=== PATIENT | female | born 2000 | race African-American/Black ===

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

== ENCOUNTER 2020-04-01 14:26 | Emergency (ER) | payer SELFPAY ==
[~2020-04-01] VITALS: Ht 154.9 cm; Wt 72.7 kg
[~2020-04-01 14:26] MED LIST changes: +POLY119P4 PO
[2020-04-01 15:58] LABS: BILIRUBIN,URINE NEGATIVE (NEG); CLARITY,URINE CLEAR; COLOR,URINE YELLOW; NITRITE,URINE NEGATIVE (NEG); PROTEIN,URINE NEGATIVE (NEG-TRACE)
[2020-04-01 16:03] LABS: RBC,URINE 0 /HPF (0-2)
[2020-04-01 16:04] LABS: BACTERIA,URINE FEW /HPF (0-FEW); SQUAMOUS EPITHELIAL CELL,UR MOD /LPF; WBC,URINE RARE /HPF (0-4)
[2020-04-01 16:06] VITALS: BP 125/62
[2020-04-01] MEDS ORDERED: METR-34 PO (16:14)
--- NOTE | 2020-04-01 16:14 | PHYS DOC ---
Past Medical History Past Medical History: Anxiety, Asthma, Other Additional Past Medical Histor: Headaches, Chronic Back Pain, PCOS Past Surgical History: No Surgical History Smoking Status: Never Smoker Alcohol Use: None Drug Use: None General Adult EDM: Chief Complaint: VAGINAL PROBLEM HPI: HPI: Patient is a 19 year old AA female who presents to the emergency department with complaints of vaginal itching and irregular vaginal discharge for the last 2 days. She denies any recent antibiotic use. She reports that she has noticed a foul smell to her vaginal discharge. She denies any dysuria, increased urinary frequency, back pain, abdominal pain, nausea, vomiting, diarrhea, or fever. She currently denies any pain. Has any concern for sexually transmitted infection. The patient would not like to be treated prophylactically for gonorrhea or chlamydia. Review of Systems: Review of Systems: Complete ROS is negative unless otherwise stated in the HPI. Heart Score: Risk Factors: Risk Factors: DM, Current or recent (<one month) smoker, HTN, HLP, family history of CAD, obesity. Risk Scores: Score 0 - 3: 2.5% MACE over next 6 weeks - Discharge Home Score 4 - 6: 20.3% MACE over next 6 weeks - Admit for Clinical Observation Score 7 - 10: 72.7% MACE over next 6 weeks - Early Invasive Strategies Allergies: Allergies: Allergies Coded Allergies Type Severity Reaction Last Updated Verified venom-honey bee Allergy Intermediate swelling 04/03/14 Yes Physical Exam: PE: Constitutional: Well developed, well nourished, no acute distress, non-toxic appearance. HENT: Normocephalic, atraumatic, bilateral external ears normal, nose normal. Eyes: PERRLA, EOMI, conjunctiva normal, no discharge. Neck: Normal range of motion, no stridor. Cardiovascular: Heart rate regular rhythm Lungs & Thorax: Respirations even and unlabored, no retractions, no respiratory distress Pelvic Exam: Car Driver present Lizz MONTES [place] Abdomen: Nontender, soft External Genitalia: Normal Skin Speculum: Normal vaginal mucosa, normal cervical discharge Bimanual: No adnexal masses or tenderness, No CMT Skin: Warm, dry, no erythema, no rash. Extremities: No cyanosis, ROM intact, no edema. Neurologic: Alert and oriented X 3, no focal deficits noted. Psychologic: Affect normal, judgement normal, mood normal. Current Patient Data: Labs: Laboratory Tests Test 04/01/20 15:17 04/01/20 15:38 POC Urine HCG, Qualitative Hcg negative (Negative) Urine Collection Type Unknown Urine Color Yellow Urine Clarity Clear Urine pH 7.0 (<5.0-8.0) Urine Specific [place] <=1.005 (1.000-1.030) Urine Protein Negative mg/dL (NEG-TRACE) Urine Glucose (UA) Negative mg/dL (NEG) Urine Ketones (Stick) Negative mg/dL (NEG) Urine Blood Negative (NEG) Urine Nitrite Negative (NEG) Urine Bilirubin Negative (NEG) Urine Urobilinogen Dipstick 1.0 mg/dL (0.2 mg/dL) Urine Leukocyte Esterase Negative (NEG) Urine RBC 0 /HPF (0-2) Urine WBC Rare /HPF (0-4) Urine Squamous Epithelial Cells Mod /LPF Urine Bacteria Few /HPF (0-FEW) Microbiology 04/01/20 Wet Prep - Final, Complete Vital Signs: Vital Signs Date Time Temp Pulse Resp B/P (MAP) Pulse Ox O2 Delivery O2 Flow Rate FiO2 04/01/20 15:08 98.7 92 20 131/74 (93) Room Air 98.7 EKG: EKG: [] Radiology/Procedures: Radiology/Procedures: [] Course & Med Decision Making: Course & Med Decision Making Pertinent Labs and Imaging studies reviewed. (See chart for details) [] Dragon Disclaimer: Dragon Disclaimer: This electronic medical record was generated, in whole or in part, using a voice recognition dictation system. Departure Departure Impression: Primary Impression: Bacterial vaginosis Disposition: HOME, SELF-CARE Condition: STABLE Referrals: NO PCP (PCP) ESTEFANI LOZA MD Patient Instructions: Bacterial Vaginosis, Dmlo-[id number] Additional Instructions: Fill the prescription and use it as directed. Follow-up with your primary care doctor or [facility] if symptoms persist, return to the ER symptoms worsen. Scripts Metronidazole (METRONIDAZOLE) 500 Mg Tablet 1 TAB PO BID for 7 Days, #14 TAB 0 Refills Prov: ALVIN BALL APRN 04/01/20 Justicifation of Admission Dx: Justifications for Admission: Justification of Admission Dx: N/A ALVIN BALL APRN Apr 01, 2020 16:14
[2020-04-02 21:08] LABS: GC PROBE Negative (Negative)
== END 2020-04-01 16:45 | disposition home or self-care (01) ==
LOC: ER 14:26
DX: N76.0 Acute vaginitis (principal); B96.89 Other specified bacterial agents as the cause of diseases classified elsewhere; J45.909 Unspecified asthma, uncomplicated; G89.29 Other chronic pain; Z91.030 Bee allergy status
CPT/HCPCS: 81001; 81025; 87491; 87591; 99284; Q0111

== ENCOUNTER 2020-07-01 17:40 | Emergency (ER) | payer OTHER ==
[~2020-07-01] VITALS: Ht 156.2 cm; Wt 81.1 kg
[~2020-07-01 17:40] MED LIST changes: +METR-34 PO
[2020-07-01 18:10] VITALS: BP 125/75
[2020-07-01] MEDS ORDERED: PROCHLORPERAZINE 10 MG/2 ML VIAL. IM ONE (18:15)
[2020-07-01] MEDS ORDERED: KETOROLAC 60 MG/2 ML VIAL. IM ONE (18:15)
[2020-07-01] MEDS ORDERED: DEXAMETHASONE 4 MG TABLET PO ONE (18:15)
[2020-07-01] MEDS ORDERED: diphenhydrAMINE 50 MG/ML VIAL IM ONE (18:15)
--- NOTE | 2020-07-01 18:26 | PHYS DOC ---
Past Medical History Past Medical History: Anxiety, Asthma, Other Additional Past Medical Histor: Headaches, Chronic Back Pain, PCOS (NELLY LERMA BELT [employer] LINK SHOP SUPERVISOR) Past Surgical History: No Surgical History (NELLY LERMA BELT [employer] L[employer] SH[employer] SUPERVISOR) Smoking Status: Never Smoker Alcohol Use: None Drug Use: None (NELLY LERMA BELT [employer] L[employer] SH[employer] SUPERVISOR) General Adult EDM: Chief Complaint: HEADACHE HPI: HPI: Patient is a 19 year old female who presents with migraine headache for the last 2 days. She states it feels like her usual headaches. She states that goes from denominational to denominational across her forehead area. She states this is not the worst headache she is ever felt. States she has been taking Tylenol and ibuprofen at home is not helping. She has light sensitivity. Patient denies neck pain, neck stiffness, nausea, vomiting, diarrhea, fever, nasal congestion, cough, chest pain, shortness of air, focal weakness, numbness or tingling, fall or head injury. Patient states she was diagnosed with migraines as a child. Patient has a history of migraine, chronic back pain, PCOS, anxiety, asthma. Patient does state that she has been very stressed lately she thinks that that is what has triggered the headache. She is rating her pain a aching 7 out of 10. (NELLY LERMA BEL[employer] SH[employer] SUPERVISOR) Review of Systems: Review of Systems: Constitutional: Denies fever or chills. [] Eyes: Denies change in visual acuity. + Light sensitivity [] HENT: Denies nasal congestion or sore throat. [] Respiratory: Denies cough or shortness of breath. [] Cardiovascular: Denies chest pain or edema. [] GI: Denies abdominal pain, nausea, vomiting, bloody stools or diarrhea. [] : Denies dysuria. [] Musculoskeletal: Denies back pain or joint pain. [] Integument: Denies rash. [] Neurologic: + headache, denies focal weakness or sensory changes. [] Endocrine: Denies polyuria or polydipsia. [] Lymphatic: Denies swollen glands. [] Psychiatric: Denies depression or anxiety. [] (NELLY LERMA BEL[employer] SUPERVISOR) Heart Score: Risk Factors: Risk Factors: DM, Current or recent (<one month) smoker, HTN, HLP, family history of CAD, obesity. Risk Scores: Score 0 - 3: 2.5% MACE over next 6 weeks - Discharge Home Score 4 - 6: 20.3% MACE over next 6 weeks - Admit for Clinical Observation Score 7 - 10: 72.7% MACE over next 6 weeks - Early Invasive Strategies (NELLY LERMA APRN) Current Medications: Current Medications Medications (Trade) Dose Ordered Sig/Vicky Start Time Stop Time Status Last Admin Dose Admin Dexamethasone (Decadron) 10 mg 1X ONCE 07/01/20 18:15 07/01/20 18:16 UNV Diphenhydramine HCl (Benadryl) 25 mg 1X ONCE 07/01/20 18:15 07/01/20 18:16 Ketorolac Tromethamine (Toradol Im) 60 mg 1X ONCE 07/01/20 18:15 07/01/20 18:16 UNV Prochlorperazine Edisylate (Compazine) 10 mg 1X ONCE 07/01/20 18:15 07/01/20 18:16 (NELLY LERMA [employer] SUPERVISOR) Allergies: Allergies: Allergies Coded Allergies Type Severity Reaction Last Updated Verified venom-honey bee Allergy Intermediate swelling 04/03/14 Yes (NELLY LERMA [employer] SUPERVISOR) Physical Exam: PE: Constitutional: Well developed, well nourished, no acute distress, non-toxic appearance. [] HENT: Normocephalic, atraumatic, bilateral external ears normal, oropharynx moist, no oral exudates, nose normal. [] Eyes: PERRLA, EOMI, conjunctiva normal, no discharge. Light sensitivity. [] Neck: Normal range of motion, no tenderness, supple, no stridor. [] Cardiovascular:Heart rate regular rhythm, no murmur [] Lungs & Thorax: Bilateral breath sounds clear to auscultation [] Abdomen: Bowel sounds normal, soft, no tenderness, no masses, no pulsatile masses. [] Skin: Warm, dry, no erythema, no rash. [] Back: No tenderness, no CVA tenderness. [] Extremities: No tenderness, no cyanosis, no clubbing, ROM intact, no edema. [] Neurologic: Alert and oriented X 3, normal motor function, normal sensory function, no focal deficits noted. [] Psychologic: Affect normal, judgement normal, mood normal. [] (NELLY LERMA APRN) Current Patient Data: Vital Signs: Vital Signs Date Time Temp Pulse Resp B/P (MAP) Pulse Ox O2 Delivery O2 Flow Rate FiO2 07/01/20 17:45 97.9 90 18 99 97.9 (NELLY LERMA APRN) EKG: EKG: [] (NELLY LERMA APRN) Radiology/Procedures: Radiology/Procedures: [] (NELLY LERMA APRN) Course & Med Decision Making: Course & Med Decision Making Pertinent Labs and Imaging studies reviewed. (See chart for details) See HPI. Full range of motion of the neck. There is no neck rigidity and no stiffness of the neck. No neck tenderness. Speaks in full complete sentences. Alert and oriented x4. Ambulatory with a steady gait. Follows all commands. Skin pink warm and dry. Afebrile. Patient is given Compazine, Benadryl, Toradol and Decadron in the ED. Patient states that she is feeling much better. Patient will be discharged home and follow-up with her primary care provider soon as possible. [] (NELLY LERMA APRN) Course & Med Decision Making I have reviewed the PA/HEALTH MANAGER's note and Plan of Care. I was available for consultation as needed during the patient's visit in the emergency department. I agree with the clinical impression, plans and disposition. (SANDY ALCARAZ MD) Dragon Disclaimer: Dragon Disclaimer: This electronic medical record was generated, in whole or in part, using a voice recognition dictation system. (NELLY LERMA APRN) Departure Departure Impression: Primary Impression: Headache Qualified Codes: R51.9 - Headache, unspecified Disposition: 01 DC HOME SELF CARE/HOMELESS Condition: STABLE Referrals: NO PCP (PCP) Patient Instructions: Migraine Headache, [id number] Additional Instructions: Follow-up with primary care provider soon as possible. Begin having weakness on one side of your body or numbness in one side your body return to the emergency room. Drink plenty of fluids. NELLY LERMA APRN Jul 01, 2020 18:26 SANDY ALCARAZ MD Jul 01, 2020 19:32
== END 2020-07-01 19:24 | disposition home or self-care (01) ==
LOC: ER 17:40
DX: G43.909 Migraine, unspecified, not intractable, without status migrainosus (principal); F41.9 Anxiety disorder, unspecified; J45.909 Unspecified asthma, uncomplicated; G89.29 Other chronic pain; Z91.030 Bee allergy status
CPT/HCPCS: 81025; 96372; 99284; J0780; J1200; J1885

== ENCOUNTER 2020-07-09 07:27 | Emergency (ER) | payer OTHER ==
[~2020-07-09] VITALS: Ht 156.2 cm; Wt 83.0 kg
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
[2020-07-09 09:04] VITALS: BP 114/61
[2020-07-09] MEDS: ACETAMINOPHEN 500 MG TABLET PO ONE (09:07)
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
[2020-07-09] MEDS ORDERED: TRAM-48 PO (09:39)
== END 2020-07-09 09:45 | disposition home or self-care (01) ==
LOC: EEVIPCON 07:27 → ER 07:27
DX: S00.83XA Contusion of other part of head, initial encounter (principal); M25.562 Pain in left knee; M79.642 Pain in left hand; R60.0 Localized edema; F41.9 Anxiety disorder, unspecified; J45.909 Unspecified asthma, uncomplicated; G89.29 Other chronic pain; Z91.030 Bee allergy status; Y08.89XA Assault by other specified means, initial encounter; Y93.89 Activity, other specified; Y92.89 Other specified places as the place of occurrence of the external cause; Y99.8 Other external cause status
CPT/HCPCS: 70450; 70486; 73130; 73562; 81025; 99285

== ENCOUNTER 2020-09-29 20:06 | Emergency (ER) | payer OTHER ==
[~2020-09-29] VITALS: Ht 154.9 cm; Wt 81.8 kg
--- NOTE | 2020-09-29 21:42 | PHYS DOC ---
Past Medical History Past Medical History: Anxiety, Asthma, Other Additional Past Medical Histor: Headaches, Chronic Back Pain, PCOS (NELLY LERMA COLLEGE OR UNIVERSITY BUSINESS MANAGER) Past Surgical History: No Surgical History (NELLY LERMA COLLEGE OR UNIVERSITY BUSINESS MANAGER) Smoking Status: Never Smoker Alcohol Use: None Drug Use: None (NELLY LERMA APRN) General Adult EDM: Chief Complaint: VAGINAL PROBLEM HPI: HPI: Patient is a 20 year old female who presents with 3 days of vaginal itching. She states that she gets frequent yeast infections and she watched a [employer] video that explained how to douche with [place] yogurt and water. She states she did this 2 days ago. She denies abdominal pain, abnormal vaginal discharge, abnormal smell, urinary symptoms, back pain, fever, dizziness. She states that she would like to be treated for STDs prophylactically. (NELLY LERMA COLLEGE OR UNIVERSITY BUSINESS MANAGER) Review of Systems: Review of Systems: Constitutional: Denies fever or chills. [] Eyes: Denies change in visual acuity. [] HENT: Denies nasal congestion or sore throat. [] Respiratory: Denies cough or shortness of breath. [] Cardiovascular: Denies chest pain or edema. [] GI: Denies abdominal pain, nausea, vomiting, bloody stools or diarrhea. [] : Denies dysuria. + Vaginal itching [] Musculoskeletal: Denies back pain or joint pain. [] Integument: Denies rash. [] Neurologic: Denies headache, focal weakness or sensory changes. [] Endocrine: Denies polyuria or polydipsia. [] Lymphatic: Denies swollen glands. [] Psychiatric: Denies depression or anxiety. [] (NELLY LERMA COLLEGE OR UNIVERSITY BUSINESS MANAGER) Heart Score: Risk Factors: Risk Factors: DM, Current or recent (<one month) smoker, HTN, HLP, family history of CAD, obesity. Risk Scores: Score 0 - 3: 2.5% MACE over next 6 weeks - Discharge Home Score 4 - 6: 20.3% MACE over next 6 weeks - Admit for Clinical Observation Score 7 - 10: 72.7% MACE over next 6 weeks - Early Invasive Strategies (NELLY LERMA COLLEGE OR UNIVERSITY BUSINESS MANAGER) Allergies: Allergies: Allergies Coded Allergies Type Severity Reaction Last Updated Verified venom-honey bee Allergy Intermediate swelling 04/03/14 Yes (NELLY LERMA APRN) Physical Exam: PE: Constitutional: Well developed, well nourished, no acute distress, non-toxic appearance. [] HENT: Normocephalic, atraumatic, bilateral external ears normal, oropharynx moist, no oral exudates, nose normal. [] Eyes: PERRLA, EOMI, conjunctiva normal, no discharge. [] Neck: Normal range of motion, no tenderness, supple, no stridor. [] Cardiovascular:Heart rate regular rhythm, no murmur [] Lungs & Thorax: Bilateral breath sounds clear to auscultation [] Abdomen: Bowel sounds normal, soft, no tenderness, no masses, no pulsatile masses. [] Skin: Warm, dry, no erythema, no rash. [] Back: No tenderness, no CVA tenderness. [] Extremities: No tenderness, no cyanosis, no clubbing, ROM intact, no edema. [] Neurologic: Alert and oriented X 3, normal motor function, normal sensory function, no focal deficits noted. [] Psychologic: Affect normal, judgement normal, mood normal. [] Normal physical exam (NELLY LERMA APRN) Current Patient Data: Labs: Laboratory Tests Test 09/29/20 20:21 POC Urine HCG, Qualitative Hcg negative (Negative) (NELLY LERMA APRN) EKG: EKG: [] (NELLY LERMA APRN) Radiology/Procedures: Radiology/Procedures: [] (NELLY LERMA APRN) Course & Med Decision Making: Course & Med Decision Making Pertinent Labs and Imaging studies reviewed. (See chart for details) See HPI. Alert and oriented x4. Ambulatory with a steady gait. Speaks in full clear sentences. Abdomen is soft and nontender. Patient is treated with azithromycin and Rocephin in the ED. Pelvic Exam: Machine Rug Cleaner present Abdomen: Nontender External Genitalia: Normal Skin Speculum: Normal vaginal mucosa, white cervical discharge Bimanual: No adnexal masses or tenderness, No CMT Wet prep showed bacterial vaginosis. She will be treated with metronidazole. [] (NELLY LERMA APRN) Dragon Disclaimer: Dragon Disclaimer: This electronic medical record was generated, in whole or in part, using a voice recognition dictation system. (NELLY LERMA APRN) Departure Departure Impression: Primary Impression: Bacterial vaginosis Disposition: 01 DC HOME SELF CARE/HOMELESS Condition: STABLE Referrals: NO PCP (PCP) Patient Instructions: Bacterial Vaginosis Additional Instructions: FOLLOW UP WITH PRIMARY CARE PROVIDER OR SWIMMING POOL MAINTENANCE SUPERVISOR. TAKE MEDICATIONS WITH FOOD AND DO NOT DRINK ALCOHOL WITH THIS MEDICATION IT WILL MAKE YOU VOMIT. Scripts Metronidazole (METRONIDAZOLE) 500 Mg Tablet 1 TAB PO BID for 7 Days, #14 TAB 0 Refills Prov: NELLY LERMA APRN 09/29/20 Attending Signature Attending Signature I have reviewed the PA/MELT SUPERINTENDANT's note and plan of care. I was available for consultation as needed during the patient's visit in the emergency department. I agree with the clinical impression, plan, and disposition. (ESTEFANI MORRISON DO) NELLY LERMA APRN Sep 29, 2020 21:41 ESTEFANI MORRISON DO Sep 30, 2020 00:10
[2020-09-29] MEDS ORDERED: AZITHROMYCIN 250 MG TABLET. PO ONE (22:00)
[2020-09-29] MEDS ORDERED: cefTRIAXone IM 500 MG VIAL. IM ONE (22:00)
[2020-09-29 22:15] VITALS: BP 111/82
[2020-09-29] MEDS ORDERED: METR-34 PO (22:23)
[2020-09-29 22:31] LABS: BILIRUBIN,URINE NEGATIVE (NEG); CLARITY,URINE CLEAR; COLOR,URINE YELLOW; NITRITE,URINE NEGATIVE (NEG); PROTEIN,URINE NEGATIVE (NEG-TRACE)
[2020-09-29 22:42] LABS: BACTERIA,URINE FEW /HPF (0-FEW)
[2020-10-01 20:36] LABS: GC PROBE Negative (Negative)
== END 2020-09-29 22:51 | disposition home or self-care (01) ==
LOC: ER 20:06
DX: N76.0 Acute vaginitis (principal); B96.89 Other specified bacterial agents as the cause of diseases classified elsewhere; F41.9 Anxiety disorder, unspecified; J45.909 Unspecified asthma, uncomplicated; G89.29 Other chronic pain; Z91.018 Allergy to other foods
CPT/HCPCS: 81001; 81025; 87491; 87591; 96372; 99284; J0696; Q0111

== ENCOUNTER 2021-03-06 19:38 | Emergency (ER) | payer OTHER ==
[~2021-03-06] VITALS: Ht 162.6 cm; Wt 81.8 kg
[2021-03-06 20:02] VITALS: BP 128/71
[2021-03-06 20:53] LABS: BILIRUBIN,URINE NEGATIVE (NEG); CLARITY,URINE CLEAR; COLOR,URINE YELLOW; NITRITE,URINE NEGATIVE (NEG); PROTEIN,URINE NEGATIVE (NEG-TRACE)
[2021-03-06 20:57] LABS: BACTERIA,URINE FEW /HPF (0-FEW); RBC,URINE 0 /HPF (0-2); WBC,URINE OCC /HPF (0-4)
[2021-03-06] MEDS ORDERED: METR500T PO (21:09)
--- NOTE | 2021-03-06 21:09 | PHYS DOC ---
Past Medical History Past Medical History: Anxiety, Asthma, Other Additional Past Medical Histor: Headaches, Chronic Back Pain, PCOS (JAYLENE JOHNSON YOGA COORDINATOR) Past Surgical History: No Surgical History (JAYLENE JOHNSON YOGA COORDINATOR) Smoking Status: Never Smoker Alcohol Use: None Drug Use: None (JAYLENE JOHNSON YOGA COORDINATOR) General Adult EDM: Chief Complaint: VAGINAL PROBLEM HPI: HPI: Patient is a 20 year old female who presents to the ED today complaining of vaginal discharge that began last week. Patient states she believes she has bacterial vaginosis or yeast infection. Denies any chance she is though she states she stopped taking her control a week ago. Denies any concerns for STDs. Denies any pelvic pain. (JAYLENE JOHNSON YOGA COORDINATOR) Review of Systems: Review of Systems: Constitutional: Denies fever or chills. [] GI: Reports vaginal discharge. Denies abdominal pain, nausea, vomiting, bloody stools or diarrhea. [] : Denies dysuria. [] Musculoskeletal: Denies back pain or joint pain. [] Integument: Denies rash. [] Neurologic: Denies headache, focal weakness or sensory changes. [] Psychiatric: Denies depression or anxiety. [] (JAYLENE JOHNSON YOGA COORDINATOR) Heart Score: C/O Chest Pain: N/A Risk Factors: Risk Factors: DM, Current or recent (<one month) smoker, HTN, HLP, family history of CAD, obesity. Risk Scores: Score 0 - 3: 2.5% MACE over next 6 weeks - Discharge Home Score 4 - 6: 20.3% MACE over next 6 weeks - Admit for Clinical Observation Score 7 - 10: 72.7% MACE over next 6 weeks - Early Invasive Strategies (JAYLENE JOHNSON YOGA COORDINATOR) Allergies: Allergies: Allergies Coded Allergies Type Severity Reaction Last Updated Verified venom-honey bee Allergy Intermediate swelling 04/03/14 Yes (JAYLENE JOHNSON YOGA COORDINATOR) Physical Exam: PE: Constitutional: Well developed, well nourished, no acute distress, non-toxic appearance. [] Abdomen: Bowel sounds normal, soft, no tenderness, no masses, no pulsatile masses. [] Skin: Warm, dry, no erythema, no rash. [] Back: No tenderness, no CVA tenderness. [] Extremities: No tenderness, no cyanosis, no clubbing, ROM intact, no edema. [] Neurologic: Alert and oriented X 3, normal motor function, normal sensory function, no focal deficits noted. [] Psychologic: Affect normal, judgement normal, mood normal. [] (JAYLENE JOHNSON APRN) Current Patient Data: Labs: Laboratory Tests Test 03/06/21 20:19 03/06/21 20:30 POC Urine HCG, Qualitative Hcg negative (Negative) Urine Collection Type Unknown Urine Color Yellow Urine Clarity Clear Urine pH 6.0 (<5.0-8.0) Urine Specific [place] 1.025 (1.000-1.030) Urine Protein Negative mg/dL (NEG-TRACE) Urine Glucose (UA) Negative mg/dL (NEG) Urine Ketones (Stick) Negative mg/dL (NEG) Urine Blood Negative (NEG) Urine Nitrite Negative (NEG) Urine Bilirubin Negative (NEG) Urine Urobilinogen Dipstick 1.0 mg/dL (0.2 mg/dL) Urine Leukocyte Esterase Negative (NEG) Urine RBC 0 /HPF (0-2) Urine WBC Occ /HPF (0-4) Urine Squamous Epithelial Cells Mod /LPF Urine Bacteria Few /HPF (0-FEW) Urine Mucus Slight /LPF Microbiology 03/06/21 Wet Prep - Final, Complete Vital Signs: Vital Signs Date Time Temp Pulse Resp B/P (MAP) Pulse Ox O2 Delivery O2 Flow Rate FiO2 03/06/21 20:02 98.2 74 16 128/71 (92) 100 Room Air 98.2 (JAYLENE JOHNSON APRN) EKG: EKG: [] (JAYLENE JOHNSON APRN) Radiology/Procedures: Radiology/Procedures: [] (JAYLENE JOHNSON APRN) Course & Med Decision Making: Course & Med Decision Making Pertinent Labs and Imaging studies reviewed. (See chart for details) This is a 20-year-old female patient presenting to the ED today with vaginal discharge that began a week ago. Negative urine hCG, UA negative for infection, wet prep positive for BV. Discharged on Flagyl. Follow-up with ACCOUNT SPECIALIST or PCP. (JAYLENE JOHNSON APRN) Course & Med Decision Making I have participated in the care of this patient and I have reviewed and agree with all pertinent clinical information above including history, exam, and recommendations. Shahriar Church DO (SHAHRIAR CHURCH DO) Karma Disclaimer: Karma Disclaimer: This electronic medical record was generated, in whole or in part, using a voice recognition dictation system. (JAYLENE JOHNSON APRN) Departure Departure Impression: Primary Impression: Bacterial vaginosis Disposition: HOME / SELF CARE / HOMELESS Condition: STABLE Referrals: NO PCP (PCP) ESTEFANI LOZA MD follow up in one week Patient Instructions: Bacterial Vaginosis, [id number] Additional Instructions: You have bacterial vaginosis. Take the prescribed antibiotics until completed. Follow-up with your doctor in 1 week Scripts Metronidazole (FLAGYL) 500 Mg Tablet 1 TAB PO BID, #14 TAB Prov: JAYLENE JOHNSON APRN 03/06/21 JAYLENE JOHNSON APRN Mar 06, 2021 21:09 SHAHRIAR CHURCH DO Mar 06, 2021 23:48
[2021-03-09 19:09] LABS: GC PROBE Negative (Negative)
== END 2021-03-06 21:48 | disposition home or self-care (01) ==
LOC: ER 19:38
DX: N76.0 Acute vaginitis (principal); B96.89 Other specified bacterial agents as the cause of diseases classified elsewhere; J45.909 Unspecified asthma, uncomplicated; G89.29 Other chronic pain; Z91.030 Bee allergy status
CPT/HCPCS: 81001; 81025; 87491; 87591; 99283; Q0111

== ENCOUNTER 2021-08-06 17:53 | Emergency (ER) | payer OTHER | END 2021-08-06 23:59 | disposition left against medical advice (07) | LOC: ER 17:53 | DX: N93.9 Abnormal uterine and vaginal bleeding, unspecified (principal); Z53.21 Procedure and treatment not carried out due to patient leaving prior to being seen by health care provider ==

== ENCOUNTER 2021-10-09 11:15 | Emergency (ER) | payer OTHER ==
[~2021-10-09] VITALS: Ht 154.9 cm; Wt 79.0 kg
[2021-10-09 11:44] LABS: BILIRUBIN,URINE NEGATIVE (NEG); CLARITY,URINE CLEAR; COLOR,URINE STRAW; NITRITE,URINE NEGATIVE (NEG); PROTEIN,URINE NEGATIVE (NEG-TRACE); UROBILINOGEN,URINE 0.2 mg/dL (0.2 mg/dL)
[2021-10-09 11:45] LABS: BACTERIA,URINE FEW /HPF (0-FEW)
--- NOTE | 2021-10-09 12:36 | PHYS DOC ---
Past Medical History Past Medical History: Anxiety, Asthma, Other Additional Past Medical Histor: Headaches, Chronic Back Pain, PCOS Past Surgical History: No Surgical History Smoking Status: Never Smoker Alcohol Use: None Drug Use: None General Adult EDM: Chief Complaint: BREAST PROBLEM HPI: HPI: Patient is a 21 year old female who presents with multiple complaints. She reports about 1 week history of bilateral breast pain. She denies any redness, swelling, fever, chills, no injury or trauma. No real changes today. She denies any axillary swelling or pain. She denies chest pressure, dyspnea, cough, dizziness, diaphoresis. LMP within the last 10 days. No current vaginal bleeding. She reports a scant amount of white vaginal discharge. No purulent discharge. She denies urinary symptoms. She is on topical estrogen patch contraceptive treatment. She does have a primary care physician, last saw them a few months ago. She has not previously experienced the same symptoms. Review of Systems: Review of Systems: Constitutional: Denies fever or chills. [] HENT: Denies nasal congestion or sore throat. [] Respiratory: Denies cough or shortness of breath. [] Cardiovascular: Denies chest pain GI: Denies abdominal pain, nausea, vomiting : Denies urinary symptoms. Denies pelvic pain. Denies vaginal bleeding. Musculoskeletal: Denies back pain or joint pain. [] Integument: Denies rash. [] Neurologic: Denies headache, focal weakness or sensory changes. Denies dizziness. Lymphatic: Denies swollen axillary glands. [] Psychiatric: Denies depression or anxiety. [] Heart Score: C/O Chest Pain: No Risk Factors: Risk Factors: DM, Current or recent (<one month) smoker, HTN, HLP, family history of CAD, obesity. Risk Scores: Score 0 - 3: 2.5% MACE over next 6 weeks - Discharge Home Score 4 - 6: 20.3% MACE over next 6 weeks - Admit for Clinical Observation Score 7 - 10: 72.7% MACE over next 6 weeks - Early Invasive Strategies Allergies: Allergies: Allergies Coded Allergies Type Severity Reaction Last Updated Verified venom-honey bee Allergy Intermediate swelling 04/03/14 Yes Physical Exam: PE: Constitutional: Well developed, well nourished, no acute distress, non-toxic appearance. [] HENT: Normocephalic, atraumatic Eyes: Sclera are clear and anicteric Neck: Trachea midline, no meningismus, no JVD Cardiovascular:Heart rate regular rhythm, was 2 radial pulses Lungs & Thorax: Bilateral breath sounds clear to auscultation, evidence of chest wall trauma, equal chest rise, no rales, rhonchi or wheezes. Breast: Bilateral breasts are unremarkable in appearance. There is no warmth, erythema. There is no palpable localized area of swelling, induration, no obvious palpable pathologic mass. Bilateral axillary are unremarkable, no palpable abnormal adenopathy noted. No galactorrhea is noted. Skin overlying each breast is unremarkable in appearance. There is no evidence of mastitis or evidence of abscess or acute abnormality Abdomen: Abdomen is obese, soft, nondistended, nontender to palpation peer Skin: Warm, dry, no erythema, no rash. Open wounds. No evidence of abscess, induration, cellulitis or mastitis noted on exam Back: No tenderness, no CVA tenderness. [] Extremities: No tenderness, no cyanosis, no clubbing, ROM intact, no edema. [] Neurologic: Alert and oriented X 3, normal motor function, normal sensory function, no focal deficits noted. [] Psychologic: Affect normal, judgement normal, mood normal. [] Current Patient Data: Labs: Laboratory Tests Test 10/09/21 11:22 10/09/21 11:37 Urine Collection Type Unknown Urine Color Straw Urine Clarity Clear Urine pH 7.0 (<5.0-8.0) Urine Specific [place] 1.015 (1.000-1.030) Urine Protein Negative mg/dL (NEG-TRACE) Urine Glucose (UA) Negative mg/dL (NEG) Urine Ketones (Stick) Negative mg/dL (NEG) Urine Blood Negative (NEG) Urine Nitrite Negative (NEG) Urine Bilirubin Negative (NEG) Urine Urobilinogen Dipstick 0.2 mg/dL (0.2 mg/dL) Urine Leukocyte Esterase Trace (NEG) Urine RBC 1-2 /HPF (0-2) Urine WBC 1-4 /HPF (0-4) Urine Squamous Epithelial Cells Many /LPF Urine Bacteria Few /HPF (0-FEW) POC Urine HCG, Qualitative Hcg negative (Negative) Microbiology 10/09/21 Wet Prep - Final, Complete Vital Signs: Vital Signs Date Time Temp Pulse Resp B/P (MAP) Pulse Ox O2 Delivery O2 Flow Rate FiO2 10/09/21 11:15 98.1 76 16 124/76 (92) 99 Room Air 98.1 EKG: EKG: [] Radiology/Procedures: Radiology/Procedures: [] Course & Med Decision Making: Course & Med Decision Making Pertinent Labs and Imaging studies reviewed. (See chart for details) Patient self swab, for wet prep and gonorrhea chlamydia cultures. The patient initially adamantly denied that she had any concern for STI. She denied any vaginal discharge. I discussed the findings, differential diagnosis and plan of care with her. Clinically she is well-appearing, no indication for further emergent or invasive exams, imaging or labs at this time. She has a benign breast exam. She initially declined empiric treatment for STI. She understands that cultures are pending. When the nurse went to discharge her, the patient now request to be treated for STI. She is given IM Rocephin and a first dose of p.o. doxycycline. Prescription for p.o. doxycycline is provided. She still maintained that she does not have any vaginal discharge or pelvic pain. She reports that she "feels moist down there" and wishes to be treated empirically. I recommend she contact her PCP and learning facilitator for further evaluation and treatment. She verbalized understanding. Return precautions are given. Karma Disclaimer: Karma Disclaimer: This electronic medical record was generated, in whole or in part, using a voice recognition dictation system. Departure Departure Impression: Primary Impression: Breast pain Disposition: HOME / SELF CARE / HOMELESS Condition: STABLE Referrals: NO PCP (PCP) Patient Instructions: Pain of Unknown Etiology (Pain without a known Cause) Additional Instructions: Please return to the ER if you develop any severe skin redness, swelling, localized areas of redness, drainage, temperature 100.4 or higher, if you are acutely injured or sustained any trauma, if you develop uncontrolled vomiting, severe abdominal pain or other concerns. Culture swabs are pending, results should be available in about 48 hours. You should receive a phone call if anything is abnormal or positive it would require any further treatment. Please follow-up with your primary care physician for further evaluation and treatment of your symptoms. Scripts Doxycycline Hyclate (DOXYCYCLINE HYCLATE) 100 Mg Tablet. 1 TAB PO BID for 7 Days, #14 TAB Prov: KHADIJAH GARZA DO 10/09/21 KHADIJAH GARZA DO Oct 09, 2021 12:36
[2021-10-09] MEDS ORDERED: cefTRIAXone IM 500 MG VIAL. IM ONE (12:45)
[2021-10-09] MEDS ORDERED: DOXY-96 PO (12:45)
[2021-10-09] MEDS ORDERED: DOXYCYCLINE HYCLATE 100 MG TABLET PO ONE (12:45)
[2021-10-09 13:10] VITALS: BP 118/72
[2021-10-11 20:33] LABS: GC PROBE Negative (Negative)
== END 2021-10-09 12:05 | disposition home or self-care (01) ==
LOC: ER 11:15
DX: N64.4 Mastodynia (principal); J45.909 Unspecified asthma, uncomplicated; G89.29 Other chronic pain; Z91.030 Bee allergy status
CPT/HCPCS: 81001; 81025; 87086; 87491; 87591; 96372; 99283; J0696; Q0111

== ENCOUNTER 2021-11-10 13:24 | Emergency (ER) | payer OTHER ==
[~2021-11-10] VITALS: Ht 154.9 cm; Wt 71.6 kg
[~2021-11-10 13:24] MED LIST changes: +DOXY-96 PO
[2021-11-10 13:27] VITALS: BP 126/71
--- NOTE | 2021-11-10 14:01 | PHYS DOC ---
Past Medical History Past Medical History: Anxiety, Asthma, Other Additional Past Medical Histor: Headaches, Chronic Back Pain, PCOS Past Surgical History: No Surgical History Smoking Status: Never Smoker Alcohol Use: None Drug Use: None General Adult EDM: Chief Complaint: NAUSEA/VOMITING/DIARRHEA HPI: HPI: Patient is a 21 year old female presented to the ED today complaining of nausea, vomiting, diarrhea and a generalized migraine headache, patient states symptoms began yesterday after having a salad from [employer]. Patient denies any fever. Denies this being the worst headache in her life. She rates her pain specifically to the head as mild and intermittent. She states the nausea and vomiting could also be from her migraine headache. She states she has light sensitivity. She states she has not tried anything for her symptoms. She states she was seen by her PCP the day before yesterday and had a physical including lab work. She states her test was negative. Review of Systems: Review of Systems: Constitutional: Denies fever or chills. [] Eyes: Denies change in visual acuity. [] HENT: Denies nasal congestion or sore throat. [] Respiratory: Denies cough or shortness of breath. [] Cardiovascular: Denies chest pain or edema. [] GI: Reports nausea, vomiting, diarrhea. Denies abdominal pain, bloody stools : Denies dysuria. [] Musculoskeletal: Denies back pain or joint pain. [] Integument: Denies rash. [] Neurologic: Reports migraine headache, denies focal weakness or sensory changes. [] Psychiatric: Denies depression or anxiety. [] Heart Score: C/O Chest Pain: N/A Risk Factors: Risk Factors: DM, Current or recent (<one month) smoker, HTN, HLP, family history of CAD, obesity. Risk Scores: Score 0 - 3: 2.5% MACE over next 6 weeks - Discharge Home Score 4 - 6: 20.3% MACE over next 6 weeks - Admit for Clinical Observation Score 7 - 10: 72.7% MACE over next 6 weeks - Early Invasive Strategies Current Medications: Current Medications Medications (Trade) Dose Ordered Sig/Vicky Start Time Stop Time Status Last Admin Dose Admin Diphenhydramine HCl (Benadryl) 25 mg 1X ONCE 11/10/21 14:30 11/10/21 14:31 Ondansetron HCl (Zofran Odt) 4 mg 1X ONCE 11/10/21 14:30 11/10/21 14:31 Sumatriptan Succinate (Imitrex) 25 mg 1X ONCE 11/10/21 14:30 11/10/21 14:31 Allergies: Allergies: Allergies Coded Allergies Type Severity Reaction Last Updated Verified venom-honey bee Allergy Intermediate swelling 04/03/14 Yes Physical Exam: PE: Constitutional: Well developed, well nourished, no acute distress, non-toxic appearance. [] HENT: Normocephalic, atraumatic, bilateral external ears normal, oropharynx moist, no oral exudates, nose normal. [] Eyes: PERRLA, EOMI, conjunctiva normal, no discharge. [] Neck: Normal range of motion, no tenderness, supple, no stridor. [] Cardiovascular:Heart rate regular rhythm, no murmur [] Lungs & Thorax: Bilateral breath sounds clear to auscultation [] Abdomen: Bowel sounds normal, soft, no tenderness, no masses, no pulsatile masses. [] Skin: Warm, dry, no erythema, no rash. [] Back: No tenderness, no CVA tenderness. [] Extremities: No tenderness, no cyanosis, no clubbing, ROM intact, no edema. [] Neurologic: Alert and oriented X 3, normal motor function, normal sensory function, no focal deficits noted. Cranial nerves II through XII intact Psychologic: Affect normal, judgement normal, mood normal. [] Current Patient Data: Vital Signs: Vital Signs Date Time Temp Pulse Resp B/P (MAP) Pulse Ox O2 Delivery O2 Flow Rate FiO2 11/10/21 13:27 98.1 112 16 126/71 (89) 99 Room Air 98.1 EKG: EKG: [] Radiology/Procedures: Radiology/Procedures: [] Course & Med Decision Making: Course & Med Decision Making Pertinent Labs and Imaging studies reviewed. (See chart for details) This a 21-year-old female patient presented to the ED today complaining of a migraine headache with nausea vomiting and diarrhea that began yesterday. She states some of her symptoms could be from a salad she ate at [employer] Denies this being the worst headache in her life. She was given Imitrex, Zofran and Benadryl and discharged. Karma Disclaimer: Karma Disclaimer: This electronic medical record was generated, in whole or in part, using a voice recognition dictation system. Departure Departure Impression: Primary Impression: Vomiting and diarrhea Additional Impression: Headache, migraine Qualified Codes: G43.009 - Migraine without aura, not intractable, without status migrainosus Disposition: HOME / SELF CARE / HOMELESS Condition: STABLE Referrals: UNKNOWN PCP NAME (PCP) follow up in one week Patient Instructions: Diarrhea, [id number], Migraine Headache, Nausea and Vomiting Additional Instructions: You were evaluated in the emergency room for migraine headache, nausea vomiting and diarrhea. Take the prescribed medications as ordered. Please rest, push fluids. Maintain good hand hygiene. Follow-up with your doctor in 1 week Scripts Cyclobenzaprine Hcl (CYCLOBENZAPRINE HCL) 10 Mg Tablet 1 TAB PO TID, #30 TAB Prov: JAYLENE JOHNSON APRN 11/10/21 Ondansetron (ONDANSETRON ODT) 4 Mg Tab.rapdis 0.5 TAB PO PRN Q6-8HRS, #8 TAB Prov: JAYLENE JOHNSON APRN 11/10/21 Sumatriptan Succinate (IMITREX) 50 Mg Tablet 1 TAB PO UD, #9 TAB 1 Refill Take 1 tablet at the onset of your headache, repeat in 2 hours if symptoms persist, do not take more than 2 tablets in 24 hours Prov: JAYLENE JOHNSON APRN 11/10/21 JAYLENE JOHNSON APRN Nov 10, 2021 14:01
[2021-11-10] MEDS ORDERED: SUMA50TA3 PO (14:04)
[2021-11-10] MEDS ORDERED: CYCL10TA19 PO (14:04)
[2021-11-10] MEDS ORDERED: ONDA4TAB12 PO (14:04)
[2021-11-10] MEDS ORDERED: KETOROLAC 60 MG/2 ML VIAL. IM ONE (14:30)
[2021-11-10] MEDS ORDERED: ONDANSETRON ODT 4 MG TAB.RAPDIS. PO ONE (14:30)
[2021-11-10] MEDS ORDERED: diphenhydrAMINE HCL 25 MG CAPSULE PO ONE (14:30)
== END 2021-11-10 14:14 | disposition home or self-care (01) ==
LOC: ER 13:24
DX: G43.009 Migraine without aura, not intractable, without status migrainosus (principal); R11.2 Nausea with vomiting, unspecified; R19.7 Diarrhea, unspecified; J45.909 Unspecified asthma, uncomplicated; G89.29 Other chronic pain; Z91.030 Bee allergy status
CPT/HCPCS: 96372; 99283; J1885